=== PATIENT | female | born 1985 | race Caucasian/White ===

== ENCOUNTER 2018-05-09 14:00 | Day surgery (SDC) | payer OTHER, MEDICAID, SELFPAY ==
[2018-05-07 15:03] VITALS: BMI 37.2
[2018-05-09] VITALS (11 sets, daily range): BP systolic 91–116; BP diastolic 61–82; PULSE 63–90; RESP 10–23; TEMP 36.1–36.7; O2SAT 72–100; BMI 37.2
--- NOTE | 2018-05-09 | PATH_ITS ---
[facility] Accession Number: [id number] . 01 Material submitted: . EDGE OF POSSIBLE FISTULA . 02 Diagnosis: Specimen Designated Edge of Possible Fistula, Site Not Designated: Skin with apparent small fistulous tract with mild chronic inflammation, negative for atypia. MRV/05/13/2018 . 02 Electronically signed: . Taras Charlton MD, Pathologist NPI- [id number] . 01 Gross description: . EDGE OF POSSIBLE FISTULA: Received in formalin are 2 pieces of SKIN FRAGMENT measuring 0.6 x 0.4 x 0.2 cm and 0.4 x 0.3 x 0.2 cm which are inked, bisected and submitted in toto in 2 cassettes. /CKI /CKI . 02 Pathologist provided ICD-10: M25.18 . 02 CPT . 561627 Performed at: 01 [facility] [address] [facility], [place], [place] [id number] MD Ochoa Gibbs MD Phone: [phone] Performed at: 02 [facility] [address] [place], [place] [id number] MD Dina Toledo MD Phone: [phone]
[2018-05-09] MEDS: LACTATED RINGERS 1,000 ML 100 ML IV (14:25)
--- NOTE | 2018-05-09 15:14 | PM.PREOP ---
Pre-operative Note Interval Note History & Physical reviewed/Exam performed by Physician: Yes Changes to H&P: No H&P completed within 30 days and has changed as indicated here:: none
--- NOTE | 2018-05-09 15:34 | SUR.OPER ---
Lithotomy on padded OR bed, head on pillow, arms secured on padded arm boards at <90 degrees abduction. Legs secured in padded yellow fins stirrups.
--- NOTE | 2018-05-09 15:54 | PM.OP.1 ---
Operative Date/Time/Diagnoses Date of procedure: 05/09/18 Time of procedure: 15:54 Pre-op diagnosis: Perianal pain Post-op diagnosis: same (Suspect drained intersphincteric abscess) Procedure & Clinicians Procedure: Anal exam under anesthesia. Same procedure as scheduled: Yes Indications: Pain and drainage perianal region Surgeon: River Mccloud Click Yes if Unassisted: Yes Anesthesia Type: General Operative Notes Findings: Possible spontaneously drained intersphincteric abscess anterior midline. I could find no evidence of a vaginal rectal fistula. There is attenuation of the rectovaginal septum. Closure Type: not applicable Specimen(s): other (Biopsied the edge of the abscess/inflamed area) Estimated Blood Loss (mL): 5 Procedure in detail: Patient was placed in lithotomy position after undergoing general LMA anesthesia. She was prepped with Betadine. Digital exam revealed the only palpable abnormality was in the anterior midline. I inserted a speculum into the vagina but confined no inflammatory changes in the rectovaginal region. I inserted a bivalve speculum into the anus and circumferentially examined it. The only area of abnormality was in the anterior midline. It appeared she had an opening in the mucosa and it was located near the intersphincteric groove. There was no drainage at this time. There was no fistula identified externally. With palpation on this area I carefully examined the overlying tissues and the vagina but could find no connection between the 2. The rectovaginal septum did seem a bit attenuated in 1 portion. As I could find no other abnormalities I opened this area gently with Metzenbaum scissors and made sure it was widely drained. I biopsied a small portion of the edge. And then I placed Nupercaine on Surgicel over it. Dressing was applied and the patient was placed back on her bed extubated and taken to the recovery area in good condition Complications: none Condition: stable Disposition: PACU
[2018-05-09] MEDS: fentaNYL 100 MCG/2 ML INJ 50 MCG IV ×2 (16:16→16:28)
[2018-05-09] MEDS: HYDROCODONE/ACET 5/325 TABLET 1 TAB PO (16:56)
--- NOTE | 2018-05-09 17:21 | SUR.PHASEII ---
pt has taken vicodin in the past at home. pt reports no adverse reactions noted from vicodin. pt dc to home in stable condition.
== END 2018-05-09 17:22 | disposition home or self-care (01) ==
PROVIDERS: PCP Obstetrics & Gynecology; Visit Provider Specialist
PROC: (CPT 45990; principal; 2018-05-09 15:45)
DX: M25.18 Fistula, other specified site (principal); F41.9 Anxiety disorder, unspecified; F32.9 Major depressive disorder, single episode, unspecified; G43.909 Migraine, unspecified, not intractable, without status migrainosus
CPT/HCPCS: 45990; 56605; J1100; J2250; J2405; J2704; J3010

== ENCOUNTER → 2018-06-04 18:43 | Outpatient (REF) | payer OTHER, MEDICAID, SELFPAY ==
[2018-06-04 19:56] LABS: Thyroid Stimulating Hormone 2.34 uIU/mL (0.47-4.68)
== END ==
LOC: LAB 18:43
PROVIDERS: PCP Obstetrics & Gynecology; Visit Provider Physician Assistant
DX: Z13.29 Encounter for screening for other suspected endocrine disorder (principal); R53.83 Other fatigue
CPT/HCPCS: 36415; 84443